=== PATIENT | male | born 1985 | race Caucasian/White ===

== ENCOUNTER → 2020-08-25 16:16 | Outpatient (CLI) | payer OTHER, SELFPAY ==
--- NOTE | ~2020-08-25 | CT_ITS ---
EXAMINATION: CT cervical spine w con EXAM DATE: 08/25/2020 16:38 INDICATION: Cervical radiculopathy. Neck pain, bilateral arm and hand numbness. TECHNIQUE: Spiral CT of the cervical spine was performed following intravenous injection of 75 mL Omn ipaque 350 solution. Axial images were reviewed. Coronal and sagittal reformatted images were also reviewed. The dose-length product (DLP) for this examination was 258.19 mGy-cm. The exposure was martita lored according to patient size (auto mA exposure control), and iterative reconstruction (ASIR) was u sed as additional dose reduction technique. Correlation is made to MR cervical spine 12/01/2016. FINDINGS: There is anterior and interbody fusion C4-6 levels. Mild disc disease at C3-4 and C6-7. Th e vertebral bodies are aligned in the AP dimension. There are no acute fractures identified. The odon toid process is intact. The lateral masses of C1 line up with C2. Paraspinal soft tissue is unremark able. There are no areas of abnormal enhancement on the post contrast images. Level by level evaluation: C2-C3: Disc does not extend beyond the endplate margin. Uncovertebral joint arthropathy: None. Facet joint arthropathy: Mild left. Neural foraminal stenosis: No stenosis. Central canal stenosis: No stenosis. C3-C4: Disc does not extend beyond the endplate margin. Uncovertebral joint arthropathy: Mild bilateral. Facet joint arthropathy: Mild left. Neural foraminal stenosis: No stenosis. Central canal stenosis: No stenosis. C4-C5: This level is fused. Uncovertebral joint arthropathy: None. Facet joint arthropathy: None. Neural foraminal stenosis: No stenosis. Central canal stenosis: No stenosis. C5-C6: This level is fused. Uncovertebral joint arthropathy: None. Facet joint arthropathy: None. Neural foraminal stenosis: No stenosis. Central canal stenosis: No stenosis. C6-C7: There is a minimal diffuse disc bulge. Uncovertebral joint arthropathy: Mild bilateral. Facet joint arthropathy: Mild bilateral. Neural foraminal stenosis: No stenosis. Central canal stenosis: No stenosis. C7-T1: Disc does not extend beyond the endplate margin. Uncovertebral joint arthropathy: None. Facet joint arthropathy: Mild bilateral. Neural foraminal stenosis: No stenosis. Central canal stenosis: No stenosis. IMPRESSION: 1. Intact fusion C4-6. No stenosis. 2. No acute cervical findings. Reviewed, dictated and finalized at location A.
== END ==
PROVIDERS: Visit Provider Chiropractor
DX: S12.000A Unspecified displaced fracture of first cervical vertebra, initial encounter for closed fracture (principal); S22.029A Unspecified fracture of second thoracic vertebra, initial encounter for closed fracture; Z98.1 Arthrodesis status; M54.13 Radiculopathy, cervicothoracic region
CPT/HCPCS: 72126; Q9967

== ENCOUNTER 2021-11-21 16:27 | Emergency (ER) | payer OTHER, SELFPAY ==
[2021-11-21 16:29] VITALS: BP 151/72; PULSE 73; RESP 14; TEMP 36.7; O2SAT 100
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
[2021-11-21] MEDS: TETANUS,DIPHTHERIA,AC PERTUSSIS ADULT (0.5 ML) BOOSTRIX IM (17:29)
== END 2021-11-21 17:35 | disposition home or self-care (01) ==
PROVIDERS: Emergency Provider Emergency Medicine
DX: S91.312A Laceration without foreign body, left foot, initial encounter (principal); Z23 Encounter for immunization; W22.8XXA Striking against or struck by other objects, initial encounter
CPT/HCPCS: 12002; 90471; 90715; 99283

== ENCOUNTER 2025-02-28 22:08 | Emergency (ER) | payer OTHER, SELFPAY ==
[2025-02-28 22:08] VITALS: O2SAT 99
[2025-02-28 22:10] VITALS: BP 149/108; PULSE 83; RESP 20; TEMP 36.3; O2SAT 97
--- NOTE | 2025-02-28 22:20 | PC.NURSE ---
covid swab sent to lab
[2025-02-28 22:59] LABS: Strep Group A RT-PCR NOT DETECTED (Negative)
--- NOTE | 2025-02-28 22:59 | ED.URI ---
HPI - URI/Sore Throat General Chief Complaint: Upper Respiratory Infection Stated Complaint: head pressure Time Seen by Provider: 02/28/25 22:14 Source: patient and family Mode of arrival: ambulatory Limitations: no limitations History of Present Illness HPI Narrative: Patient is a 39-year-old male with bilateral ear pains and a sore throat and headache this evening. He has not been feeling well for the past day. MD elicited complaint: sore throat and nasal congestion Pertinent past history: other (None) Onset (ago): day(s) (3) Consistency: constant Severity: moderate Pain scale (0-10): 5 Description of mucous: clear and watery Able to tolerate fluids by mouth: Yes Exacerbating factors: nothing Relieving factors: nothing Context: other (Patient is having bilateral ear pain and a sore throat for the past few days and also a headache) Associated symptoms: denies other symptoms, myalgias, diaphoresis, headache, nasal congestion and sore throat Related Data Allergies Allergy/AdvReac Type Severity Reaction Status Date / Time No Known Allergies Allergy Verified 02/28/25 22:16 Review of Systems Review of Systems: All systems reviewed & are unremarkable except as noted in HPI and below Constitutional: Constitutional: Reports no additional constitutional complaints Eyes: Eyes: Reports no additional eye complaints ENT: Reports system reviewed and no additional complaints, except as documented Cardiovascular: Cardiovascular: Reports no additional cardiovascular complaints Respiratory: Respiratory: Reports no additional respiratory complaints Gastrointestinal: Gastrointestinal: Reports no additional gastrointestinal complaints Genitourinary: Genitourinary: Reports no additional male genitourinary complaints Musculoskeletal: Musculoskeletal: Reports no additional musculoskeletal complaints Integumentary/Breasts: Skin/Breast: Reports system reviewed and no additional complaints, except as docu Neurologic: Reports system reviewed and no additional complaints, except as documented Psychiatric: Psychiatric: Reports no additional psychiatric complaints Endocrine: Endocrine: Reports no additional endocrine complaints Hematologic/Lymphatic: Hematologic/Lymphatic: Reports no additional hematologic/lymphatic complaints Allergic/Immunologic: Allergic/Immunologic: Reports no additional allergic/immunologic complaints Exam Const: General: healthy appearing and no acute distress Nutritional Appearance: well nourished Orientation/consciousness: patient oriented x3 Limitations: no limitations HENMT: Head: normal to inspection Ears: external ears normal Face/Nose/Sinus: Normal external nose present Face and sinus: normal facial exam Other: Patient has bilateral ear pain and sore throat for the past few days. Check strep and COVID panels. Antibiotics. Ear drops. Eyes: Conjunctivae: conjunctivae normal and normal conjunctivae Pupils: Equal, round and reactive pupils present EOM: EOMs intact bilaterally Neck: Neck: normal visual inspection Chest: Chest palpation & inspection: normal inspection of the chest Resp: Effort & Inspection: normal respiratory effort Cardio: Rate: regular rate Rhythm: regular rhythm Heart sounds: no murmurs GI: Inspection: non-distended GI Palp: Yes Soft to palpation, No Tenderness to palpation present (GI), No Guarding due to palpation present (GI) and No Rigid due to palpation Auscultation: normal bowel sounds : General: Yes bladder normal to palpation Back/Spine/Pelvis: Back: no CVA tenderness Cervical Spine: collar present Skin: General skin exam: normal color, jaundice and pallor Neuro: General: patient oriented x3, moves all extremities and no meningeal signs Extrem: General: normal to inspection Psych: Mental Status: mental status grossly normal Affect: normal affect Attitude: cooperative Course Vital Signs Vital signs: Vital Signs Temperature 36.3 C L 02/28/25 22:10 Pulse Rate 83 02/28/25 22:10 Respiratory Rate 20 02/28/25 22:10 Blood Pressure 149/108 H 02/28/25 22:10 Pulse Oximetry 97 02/28/25 22:10 Oxygen Delivery Room Air 02/28/25 22:10 Temperature 36.3 C L 02/28/25 22:10 Pulse Rate 83 02/28/25 22:10 Respiratory Rate 20 02/28/25 22:10 Blood Pressure 149/108 H 02/28/25 22:10 Pulse Oximetry 97 02/28/25 22:10 Oxygen Delivery Room Air 02/28/25 22:10 MDM - URI/Sore Throat MDM Narrative Medical decision making narrative: Patient is a 39-year-old male with bilateral ear pain and a sore throat for the past week. Antibiotics. Ear drops. Lab Data Attestation: I reviewed the patient's lab results. Labs: Lab Results 02/28/25 Range/Units 22:18 Influenza A (RT-PCR) Negative (Negative) Influenza B (RT-PCR) Negative (Negative) RSV (RT-PCR) Negative (Negative) SARS-CoV-2 RNA (RT-PCR) Negative (Negative) Group A Strep (PCR) Not detected (Negative) Discharge Plan Discharge Clinical Impression: Otitis media Qualifiers: Otitis media type: unspecified Chronicity: acute Qualified Code(s): H66.90 - Otitis media, unspecified, unspecified ear Otitis externa Qualifiers: Otitis externa type: unspecified type Chronicity: acute Laterality: bilateral Qualified Code(s): H60.503 - Unspecified acute noninfective otitis externa, bilateral Pharyngitis Qualifiers: Pharyngitis/tonsillitis etiology: unspecified etiology Qualified Code(s): J02.9 - Acute pharyngitis, unspecified Patient Disposition: Home Condition: Stable Instructions: Antibiotic Form, Pharyngitis (ED), Ear Infection (AC) Patient Language: Iranian Prescriptions: New [id number] 3.5-10,000-1 mg/mL-unit/mL-% solution 3 drp EACH EAR TID 7 Days Qty: 10 0RF amoxicillin-pot clavulanate [Augmentin] 500-125 mg tablet 1 tablet PO BID 7 Days Qty: 14 0RF No Action cephalexin 250 mg capsule 250 mg PO Q6H 7 Days Qty: 28 0RF Follow-up/Referrals: PHYSICIAN,[employer] [Primary Care Provider, Internal Medicine] Time of Disposition: 23:31
[2025-02-28 23:12] LABS: Influenza A QL RT-PCR Negative (Negative); Influenza B QL RT-PCR Negative (Negative); RSV RNA, RT-PCR Negative (Negative); SARS-CoV-2 RNA PCR Negative (Negative)
[2025-02-28] MEDS: ACETAMINOPHEN 500 MG TABLET 1000 MG PO (23:39)
[2025-02-28] MEDS: NEOMYCIN/POLYMYXIN/HYDROCORT OT SUSP 10 ML BTL (*BKC) 3 DROP EACH EAR (23:41)
[2025-03-01 00:20] VITALS: BP 139/89; PULSE 80; RESP 16; TEMP 36.4; O2SAT 99
== END 2025-03-01 00:20 | disposition home or self-care (01) ==
PROVIDERS: Emergency Provider Emergency Medicine; Referring Provider Family Medicine
DX: H60.503 Unspecified acute noninfective otitis externa, bilateral (principal); J02.9 Acute pharyngitis, unspecified; H66.90 Otitis media, unspecified, unspecified ear; Z20.822 Contact with and (suspected) exposure to COVID-19
CPT/HCPCS: 87637; 87651; 99283; A9270